=== PATIENT | female | born 1975 | race Caucasian/White ===

== ENCOUNTER 2023-05-04 16:03 | Emergency (ER) | payer OTHER, SELFPAY ==
[2023-05-04 16:06] VITALS: BP 155/99; PULSE 90; RESP 17; TEMP 36.6; O2SAT 100
[2023-05-04 17:29] LABS: Appearance Urine Turbid (Clear); Bacteria Urine 2+ /hpf; Bilirubin Urine Negative (Negative); Blood Urine 1+ (Negative); Color Urine Dark Yellow (Yellow); Glucose Urine UA Negative (Negative); Ketones Urine Trace mg/dL (Negative); Leukocyte Esterase Ur Negative LEU/UL (Negative); Nitrate Urine Negative (Negative); Protein Urine 1+ mg/dL (Negative); RBC Urine 21-50 /hpf (0-2); Specific Grav Ur 1.025 (1.001-1.035); Squamous Epithelial Cell Urine Many /hpf (Few); pH Urine 5.5 (5.0-9.0)
[2023-05-04 17:38] LABS: Add Urine Microscopic? YES
--- NOTE | 2023-05-04 18:39 | ED.FEMALEGU ---
HPI - Female Genitourinary General Chief complaint: Urogenital-Female Stated complaint: other Time Seen by Provider: 05/04/23 17:07 History of Present Illness HPI Narrative: 47-year-old female reports for evaluation for vaginal and rectal discomfort for the past 4 days. Patient states she has had 1 sexual partner for the past year and they have been practicing in her vaginal intercourse. She states they last had intercourse 4 days ago and since then she has been having pain in her rectum and her vagina. She reports dysuria and a foul vaginal odor that she describes as sour . She does report a history of BV and states that this seems similar. She reports pain in her rectum states she is scared to have a bowel movement given worsening pain with defecation. She denies abdominal pain, nausea, vomiting, fevers, diarrhea, vaginal discharge or bleeding, rectal discharge or bleeding. She is not on control. Her last menstrual period was 2 weeks ago. She does not have a PCP or OBGYN. Last Pap unknown. Related Data Allergies Allergy/AdvReac Type Severity Reaction Status Date / Time codeine Allergy Mild Itching Verified 05/04/23 17:09 Review of Systems Review of Systems: CONSTITUTIONAL: Denies fever, chills, or sweats. EYES: Denies visual changes, redness, or discharge. ENT: Denies rhinorrhea, congestion, sore throat, or otalgia. CARDIOVASCULAR: Denies chest pain, palpitations, or edema. RESPIRATORY: Denies cough or dyspnea. GASTROINTESTINAL: Denies abdominal pain, nausea, vomiting, or diarrhea. GENITOURINARY: See HPI SKIN: Denies rash or itching. MUSCULOSKELETAL: Denies back pain, joint pain, or myalgia. NEUROLOGIC: Denies headache, numbness, or weakness. PSYCHIATRIC: Denies anxiety or depression. PMFSH Social History Social History Smoking status: Never smoker Alcohol intake: current Exam Narrative: GENERAL: Well-appearing, well-nourished, and in no acute distress. HEAD: Normocephalic, atraumatic. NECK: Supple. CHEST: Clear to auscultation. No respiratory distress. HEART: Regular rate and rhythm. No murmur heard. Normal peripheral pulses. ABDOMEN: Soft, nontender, nondistended, normal active bowel sounds. no CVA tenderness. Rectal exam without external or internal hemorrhoids. No obvious fissures. No surrounding lesions or rashes. Tenderness during digital rectal exam. No gross blood or melena. No discharge. : No external rashes, lesions, vesicles, edema. No vaginal or cervical lesions. Cervical os closed. Scant amount of blood. Mild amount of fraga-white vaginal discharge. There is a fishy malodor present. NO CMT. No adnexal tenderness or masses. EXTREMITIES: Normal range of motion. No edema. SKIN: Warm, dry, no rash. NEURO: No focal deficits. Alert and oriented x3 Course Vital Signs Vital signs: Vital Signs Temperature 97.9 F 05/04/23 16:06 Pulse Rate 90 05/04/23 16:06 Respiratory Rate 17 05/04/23 16:06 Blood Pressure 155/99 H 05/04/23 16:06 Pulse Oximetry 100 05/04/23 16:06 Oxygen Delivery Room Air 05/04/23 16:06 Temperature 97.9 F 05/04/23 16:06 Pulse Rate 90 05/04/23 16:06 Respiratory Rate 17 05/04/23 16:06 Blood Pressure 155/99 H 05/04/23 16:06 Pulse Oximetry 100 05/04/23 16:06 Oxygen Delivery Room Air 05/04/23 16:06 MDM - Female Genitourinary MDM Narrative Medical decision making narrative: 47-year-old female reports for evaluation for rectal pain, vaginal discomfort and malodor to her vaginal x4 days after having vaginal and rectal intercourse. See HPI for further history. Vitals significant for elevated blood pressure of 155/99, otherwise unremarkable. Exam significant for the above. Exam not consistent with PID. Gonorrhea chlamydia and Trichomonas swabs of the rectum and vagina are negative. Urinalysis with hematuria and 6-10 wbc's with 2+ bacteria. Given symptoms of dysu
[2023-05-04 19:44] LABS: Trichomonas Vag PCR NOT DETECTED (NOT DETECTE)
[2023-05-04 20:09] LABS: Chlamydia trachomatis NOT DETECTED (NOT DETECTE); Neisseria gonorrhoeae PCR NOT DETECTED (NOT DETECTE)
[2023-05-04 20:10] LABS: Chlamydia trachomatis NOT DETECTED (NOT DETECTE); Neisseria gonorrhoeae PCR NOT DETECTED (NOT DETECTE)
[2023-05-04] MEDS: CEPHALEXIN 500 MG CAPSULE PO (20:46)
[2023-05-04] MEDS: metroNIDAZOLE 500 MG TABLET PO (20:46)
== END 2023-05-04 21:02 | disposition home or self-care (01) ==
PROVIDERS: Student in an Organized Health Care Education/Training Program; Emergency Provider Physician Assistant
DX: N76.0 Acute vaginitis (principal); R82.90 Unspecified abnormal findings in urine; K62.89 Other specified diseases of anus and rectum
CPT/HCPCS: 81001; 81025; 87070; 87077; 87086; 87088; 87186; 87491; 87591; 87661; 99284; A9270

== ENCOUNTER 2023-12-24 08:24 | Emergency (ER) | payer OTHER, SELFPAY ==
--- NOTE | 2023-12-24 08:29 | ED.GENADULT ---
HPI - General Adult General Chief complaint: Extremity Problem,Nontraumatic Stated complaint: Right Arm Pain Time Seen by Provider: 12/24/23 08:44 Source: patient, RN notes reviewed and old records reviewed Mode of arrival: ambulatory Limitations: no limitations History of Present Illness HPI narrative: 48-year-old female presents to the [facility] with complaints of right arm pain. Reports that when she turns her head to the left that she has pain radiating to the posterior portion of her right triceps. Unable to reproduce pain with palpation. Patient has no midline tenderness. Has full range of motion of the neck, shoulder, elbow and wrist. Neurologically intact. Capillary refill under 2 seconds as well as positive radial Patient reports pain has been going on for several weeks. Had something similar in the past but never sought treatment. Denies having a primary care provider. Denies any injury. Has full range of motion without difficulty. 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 Onset (ago): week(s) Related Data Allergies Allergy/AdvReac Type Severity Reaction Status Date / Time codeine Allergy Mild Itching Verified 12/24/23 08:43 Review of Systems Review of Systems: All systems reviewed & are unremarkable except as noted in HPI and below Constitutional: Constitutional: Reports no additional constitutional complaints ENT: Reports system reviewed and no additional complaints, except as documented Cardiovascular: Cardiovascular: Reports no additional cardiovascular complaints, Denies chest pain and Denies dyspnea Respiratory: Respiratory: Reports no additional respiratory complaints, Denies chest congestion, Denies cough and Denies dyspnea Gastrointestinal: Gastrointestinal: Reports no additional gastrointestinal complaints, Denies abdominal pain, Denies nausea and Denies vomiting Musculoskeletal: Musculoskeletal: Reports as per HPI Integumentary/Breasts: Skin/Breast: Reports system reviewed and no additional complaints, except as docu Neurologic: Reports system reviewed and no additional complaints, except as documented Psychiatric: Psychiatric: Reports no additional psychiatric complaints Allergic/Immunologic: Allergic/Immunologic: Reports no additional allergic/immunologic complaints [facility] Surgical History Surgical History (Updated 12/24/23 @ 08:57 by Vesta Cullen APRN) H/O oophorectomy 2016 History of orthopedic surgery Right knee, femur Hx of cholecystectomy 2011 Social History Social History Smoking status: Never smoker Alcohol intake: current Comments At the time of my signature, I reviewed and agree with the nursing past medical, surgical, social, and family history. There is no relevant family history pertinent to the patient complaint. Exam Const: General: cooperative, healthy appearing, comfortable, no acute distress, well developed, alert and well nourished Nutritional Appearance: well nourished Orientation/consciousness: patient oriented x3 Limitations: no limitations HENMT: Head: normal to inspection Ears: hearing grossly normal bilaterally and external ears normal Face/Nose/Sinus: Normal external nose present, Normal nares present, Normal nasal mucous membranes and turbinates present, normal facial exam and face symmetric Face and sinus: normal facial exam and face symmetric Eyes: General: appearance normal, both eyes and all related structures Alignment and Position: alignment normal Periorbital: periorbital findings normal Pupils: Equal, round and reactive pupils present EOM: EOMs intact bilaterally Neck: Neck: normal visual inspection, full ROM, no lymphadenopathy and no meningeal signs Chest: Chest palpation & inspection: normal inspection of the chest Resp: Effort & Inspection: normal respiratory effort and able to speak in complete sentences Auscultation: clear to auscultation bilaterally, no crackle
[2023-12-24 08:34] VITALS: BP 132/82; PULSE 81; RESP 16; TEMP 36.7; O2SAT 100
== END 2023-12-24 09:13 | disposition home or self-care (01) ==
PROVIDERS: Emergency Provider Nurse Practitioner
DX: M79.621 Pain in right upper arm (principal)
CPT/HCPCS: 99213; G0463